=== PATIENT | male | born 1990 | race African-American/Black ===

== ENCOUNTER 2023-04-14 06:00 | Emergency (ER) | payer OTHER ==
[~2023-04-14] VITALS: Ht 172.7 cm; Wt 88.9 kg
[2023-04-14] MEDS ORDERED: [UNRECOGNIZED DRUG - CODE] TOP (08:43)
[2023-04-14 08:58] VITALS: BP 135/78; TEMP 98; O2SAT 100
== END 2023-04-14 09:00 | disposition home or self-care (01) ==
LOC: M ED 06:00
DX: S67.21XA Crushing injury of right hand, initial encounter (principal); B35.3 Tinea pedis; W23.1XXA Caught, crushed, jammed, or pinched between stationary objects, initial encounter; Y92.9 Unspecified place or not applicable; Y93.9 Activity, unspecified; Y99.1 Military activity; Z79.899 Other long term (current) drug therapy